=== PATIENT | male | born 1970 | race Caucasian/White ===

== ENCOUNTER 2022-08-16 01:04 | Emergency (ER) | payer MEDICAID, OTHER ==
[~2022-08-16] VITALS: Ht 170.2 cm; Wt 83.0 kg
--- NOTE | 2022-08-16 01:50 | NUR ---
[facility] "ACCIDENTALLY INHALED INSECTICIDE" C/O PAIN UPON INHALATION 08/01 "BURNING" PAIN SINCE 1699. PT AWAKE AND ALERT X4 ANXIOUS AND PACING. PLACED ON MONITOR HYPERTENSIVE ON ASSESSMENT.
[2022-08-16] MEDS ORDERED: MORPHINE SULFATE INJ 2 MG/ML DISP.SYRIN ONE (02:25)
[2022-08-16] MEDS ORDERED: MORPHINE SULFATE INJ 2 MG/ML DISP.SYRIN IV ONE (02:30)
--- NOTE | 2022-08-16 02:31 | NUR ---
20G IV ESTABLISHED AT [facility]. BLOOD DRAWN AND SENT TO LAB.
--- NOTE | 2022-08-16 02:39 | NUR ---
XRAY AT BEDSIDE
[2022-08-16 02:46] LABS: BASOPHILS % (AUTO) 0.3 % (0.0-2.0); HEMATOCRIT 44 % (39-51); HEMOGLOBIN 14.9 g/dL (13.5-17.5); LYMPHOCYTES # (AUTO) 1.6 K/uL (0.8-4.8); LYMPHOCYTES % (AUTO) 13.2 % (20.0-44.0); MEAN CORPUSCULAR HGB CONC 34 g/dl (31.0-36.0); MEAN CORPUSCULAR VOLUME 96 fL (80-96); MONOCYTES % (AUTO) 8.1 % (2.0-12.0); NEUTROPHILS # (AUTO) 9.2 K/uL (1.8-8.9); NEUTROPHILS % (AUTO) 76.4 % (43.0-81.0); PLATELET COUNT (AUTO) 260 K/uL (150-450); RED BLOOD CELL COUNT(AUTO) 4.63 MIL/uL (4.5-6.0); WHITE BLOOD COUNT (AUTO) 12.1 K/uL (4.3-11.0)
[2022-08-16 03:15] LABS: CALCIUM, SERUM 8.8 mg/dL (8.5-10.1); CARBON DIOXIDE 32 mmol/L (21-32); CHLORIDE 101 mmol/L (98-107); CREATININE 0.8 mg/dL (0.6-1.3); GLUCOSE 128 mg/dL (74-106); POTASSIUM 3.6 mmol/L (3.5-5.1); SODIUM SERUM 139 mmol/L (136-145); UREA NITROGEN, BLOOD 21 mg/dL (7-18)
--- NOTE | 2022-08-16 03:30 | NUR ---
CRITICAL LAB: [facility]
[2022-08-16] MEDS ORDERED: NITROGLYCERIN 0.4 MG/TAB BOTTLE ONE (03:40)
[2022-08-16] MEDS ORDERED: ASPIRIN 81 MG TAB.CHEW ONE (03:40)
--- NOTE | 2022-08-16 03:44 | NUR ---
DR FARRELL ON THE PHONNE WITH ER AT [facility]
--- NOTE | 2022-08-16 03:47 | NUR ---
FAXED EKG TO [facility] [phone]
[2022-08-16 03:50] VITALS: BP 205/112
--- NOTE | 2022-08-16 03:52 | NUR ---
ACEPTED BY [facility] AT [facility]
--- NOTE | 2022-08-16 03:54 | NUR ---
[address]
--- NOTE | 2022-08-16 03:55 | NUR ---
REPORT GIVEN TO EVANS MILLIGAN [facility] RACHELLE
[2022-08-16] MEDS ORDERED: HEPARIN SODIUM, PORCINE 5000 UNITS/1 ML VIAL ONE (03:58)
[2022-08-16] MEDS ORDERED: ASPIRIN 325 MG TABLET PO ONE (04:00)
[2022-08-16] MEDS ORDERED: HEPARIN SODIUM, PORCINE 5000 UNITS/1 ML VIAL IV ONE (04:00)
[2022-08-16] MEDS ORDERED: NITROGLYCERIN 0.4 MG/TAB BOTTLE SL ONE (04:00)
--- NOTE | 2022-08-16 04:01 | NUR ---
[facility] AT PT'S BEDSIDE TO TRANSFER PT TO [facility]
--- NOTE | 2022-08-16 04:07 | NUR ---
PT PICKED UP BY [facility] FOR [facility] TRANSFER TO [facility]. TRANSFER FORM AND PT CHART COMPLETED AND PROVIDED TO [facility].
== END 2022-08-16 04:07 | disposition short-term general hospital (02) ==
LOC: ER 01:07
DX: I21.3 ST elevation (STEMI) myocardial infarction of unspecified site (principal)
CPT/HCPCS: 99291; 96374; 96375; 93005; 71045; 85025; 80048; 36415; 84484; 85730; J1644; J2270